=== PATIENT | male | born 1960 | race Caucasian/White ===

== ENCOUNTER 2021-10-25 23:00 | Emergency (ER) | payer MEDICARE, MEDICAID ==
[2021-10-25] MEDS ORDERED: AMIODARONE 150 MG/100 ML 100 ML IV ONE (23:24)
[2021-10-25] MEDS ORDERED: AMIODARONE 360 MG/200 ML 200 ML IV ONE ×2 (23:24)
--- NOTE | 2021-10-25 23:34 | ED Physician Documentation ---
History of Present Illness - Stated complaint Stated Complaint: CHEST/ARM PX - History obtained from History obtained from: Patient, Family (son) - Additonal information Additional information: 61-year-old man presented as an acute STEMI and cardiac arrest and V. fib. Further history limited by patient acuity. Review of Systems Unable to obtain: Other (Review of systems limited by patient acuity) PD PAST MEDICAL HISTORY - Present Medications Home Medications: Ambulatory Orders Medication Instructions Recorded Confirmed Home Medications Unobtainable 10/25/21 10/25/21 [HOME MEDICATIONS UNOBTAINABLE] - Allergies Allergies/Adverse Reactions: Allergies Allergy/AdvReac Type Severity Reaction Status Date / Time No Known Drug Allergies Allergy Verified 10/25/21 23:38 PD ED PE NORMAL - Vitals Vital signs reviewed: Yes - General General: Other (on initial eval, patient was pulseless, with agonal respirations. after ROSC, AOX4, uncomfortable appearing, clutching chest) - HEENT HEENT: Atraumatic, PERRL, EOMI, Moist mucous membranes, Pharynx benign - Neck Neck: Supple, no meningeal sign - Cardiac Cardiac: RRR (initially pulseless. RRR s/p ROSC) - Respiratory Respiratory: No respiratory distress, Clear bilaterally - Abdomen Abdomen: Non tender, Non distended - Derm Derm: Normal color, Warm and dry - Extremities Extremities: No deformity - Neuro Neuro: Alert and oriented X 3 (s/p ROSC) - Psych Psych: Other (initially agitated s/p ROSC, but redirectable) Results - Labs Labs: Laboratory Tests 10/25/21 22:40 WBC 17.1 H RBC 5.26 Hgb 16.3 Hct 49.2 MCV 93.5 MCH 31.0 MCHC 33.1 RDW 13.1 Plt Count 280 MPV 8.7 PD MEDICAL DECISION MAKING - ED course ED course: Son reports patient hit head / L shoulder/occiput at 1800 after slipping on ice outside [facility], no LOC. shortly after started c/o CP and was brought to ED. 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 pmh hip replacement, chronic back pain, ?copd. Benefits of heparin outweigh risk of head injury given patient has acute STEMI on EKG. code stemi called upon ROSC with EKG concerning for acute TN. d/w Dr. Costa, ED MD who is accepting at [facility]. life flight at bedside. Departure - Departure Disposition: 02 Transfer Acute Care Hosp Clinical Impression: STEMI (ST elevation myocardial infarction), Ventricular fibrillation, Cardiac arrest Condition: Stable
[2021-10-25] MEDS ORDERED: ASPIRIN 325 MG TABLET PO STA (23:36)
--- NOTE | 2021-10-25 23:44 | XRAY Report ---
PROCEDURE: Chest 1 View X-Ray INDICATIONS: Chest Pain TECHNIQUE: One view of the chest was acquired. COMPARISON: None. FINDINGS: SUPPORT DEVICES: Overlying monitor artifact. LUNGS/PLEURA: No focal consolidation, pleural effusion or space-occupying pneumothorax. MEDIASTINUM: The cardiomediastinal silhouette is within normal limits. BONES/SOFT TISSUES: No acute abnormality. IMPRESSION: 1.No acute cardiopulmonary abnormality. Reviewed by: Colby Luque MD on 10/25/2021 11:43 PM [facility] Approved by: Colby Luque MD on 10/25/2021 11:43 PM [facility] Station ID: [id number]
[2021-10-25] MEDS ORDERED: AMIODARONE 360 MG/200 ML 200 ML IV SCH (23:45)
[2021-10-25] MEDS ORDERED: HEPARIN 25000UNITS/500ML (D5W) 25,000 UNIT/500 ML BAG IV SCH (23:45)
[2021-10-25 23:49] LABS: BASOPHILS % (AUTO) 0.8 %; EOSINOPHILS % (AUTO) 2.1 %; HCT - HEMATOCRIT 49.2 % (42.0-52.0); HGB - HEMOGLOBIN 16.3 g/dL (14.0-18.0); LYMPHOCYTES % (AUTO) 40.5 %; MEAN CORPUSCULAR HGB CONC 33.1 g/dL (32.0-36.0); MEAN CORPUSCULAR VOLUME 93.5 fL (80.0-94.0); MEAN PLATELET VOLUME 8.7 fL (7.4-11.4); MONOCYTES % (AUTO) 4.7 %; NEUTROPHILS % (AUTO) 50.8 %; PLT - PLATELET COUNT 280 10^3/uL (130-450); RED BLOOD COUNT 5.26 10^6/uL (4.70-6.10); RED CELL DISTRIBUTION WIDTH 13.1 % (12.0-15.0); WHITE BLOOD COUNT 17.1 x10^3/uL (4.8-10.8)
[2021-10-26 00:08] LABS: ALBUMIN/GLOBULIN RATIO 1.3 (1.0-2.2); BILIRUBIN,TOTAL 0.5 mg/dL (0.2-1.0); CALCIUM 8.4 mg/dL (8.5-10.3); CREATININE 0.9 mg/dL (0.6-1.2); POTASSIUM 3.5 mmol/L (3.5-5.0); TOTAL PROTEIN 7.1 g/dL (6.7-8.2)
[2021-10-26 00:12] LABS: ABNORMAL LYMPHS % (MANUAL) 2 %; BAND NEUTROPHILS % (MANUAL) 1 %; BASOPHILS # (MANUAL) 0.3 10^3/uL (0-0.1); BASOPHILS % (MANUAL) 2 %; DIFFERENTIAL COMMENT MANUAL DIFFERENTIAL; EOSINOPHILS # (MANUAL) 0.9 10^3/uL (0-0.7); LYMPHOCYTES # (MANUAL) 7.5 10^3/uL (1.5-3.5); LYMPHOCYTES % (MANUAL) 42 %; NEUTROPHILS # (MANUAL) 7.4 10^3/uL (1.5-6.6); PLATELET ESTIMATE, MANUAL NORMAL (130-450,000) (NORMAL); PLATELET MORPHOLOGY NORMAL APPEARANCE (NORMAL); RBC MORPHOLOGY (MULTIPLE) NORMAL APPEARANCE (NORMAL); WBC MORPHOLOGY (MULTIPLE) NORMAL APPEARANCE (NORMAL)
[2021-10-26 00:27] VITALS: BP 112/83
[2021-10-26 00:33] LABS: B. PARAPERTUSSIS- RESP PCR PAN NOT DETECTED; B. PERTUSSIS- RESP PCR PANEL NOT DETECTED; C. PNEUMONIAE- RESP PCR PANEL NOT DETECTED; CORONAVIRUS 229E-RESP PCR NOT DETECTED; CORONAVIRUS HKU1-RESP PCR NOT DETECTED; CORONAVIRUS NL63-RESP PCR NOT DETECTED; CORONAVIRUS OC43-RESP PCR NOT DETECTED; HUMAN METAPNEUMOVIRUS NOT DETECTED; INFLUENZA A- RESP PCR PANEL NOT DETECTED; INFLUENZA B - RESP PCR PANEL NOT DETECTED; M. PNEUMONIAE- RESP PCR PANEL NOT DETECTED; PARAINFLUENZA VIRUS 1 NOT DETECTED; PARAINFLUENZA VIRUS 2 NOT DETECTED; PARAINFLUENZA VIRUS 3 NOT DETECTED; PARAINFLUENZA VIRUS 4 NOT DETECTED; RHINOVIRUS/ENTEROVIRUS NOT DETECTED; RSV- RESP PCR PANEL NOT DETECTED; SARS-CoV-2 -RESP PCR PANEL NOT DETECTED
== END 2021-10-26 00:05 | disposition short-term general hospital (02) ==
LOC: ED 23:00
DX: I46.9 Cardiac arrest, cause unspecified (principal); I21.3 ST elevation (STEMI) myocardial infarction of unspecified site; I49.01 Ventricular fibrillation; Z20.822 Contact with and (suspected) exposure to COVID-19
CPT/HCPCS: 36415; 71045; 80053; 83690; 84484; 85025; 87631; 92950; 93005; 99281; 99285; A9270; J0282; 0202U; 85520

== ENCOUNTER 2023-03-07 15:35 | Emergency (ER) | payer MEDICARE, MEDICAID ==
--- NOTE | 2023-03-07 16:03 | ED Physician Documentation ---
PD HPI CHEST PAIN - Stated complaint Stated Complaint: CHEST PX - Chief complaint Chief Complaint: Cardiac - History obtained from History obtained from: Patient - Additional information Additional information: 62-year-old gentleman with history of coronary disease, GA x1 a little over a year ago with 2 stents. This morning he developed very mild right lower nonradiating chest pain that was worse with movement but not with exertion per se. He is not specifically short of breath with it, he says he is always short of breath related to COPD and asbestosis, but not more so than usual. Denies pedal edema or calf pain. PD PAST MEDICAL HISTORY - Past Medical History Past Medical History: Yes Cardiovascular: GA Musculoskeletal: Chronic back pain - Past Surgical History Past Surgical History: Yes Ortho: Hip replacement - Present Medications Home Medications: Ambulatory Orders Medication Instructions Recorded Confirmed Home Medications Unobtainable 10/25/21 10/25/21 [HOME MEDICATIONS UNOBTAINABLE] - Allergies Allergies/Adverse Reactions: Allergies Allergy/AdvReac Type Severity Reaction Status Date / Time acetaminophen [From Tylenol] Allergy Unknown Verified 03/07/23 15:40 Penicillins Allergy Rash Verified 03/07/23 15:40 - Social History Does the pt smoke?: No Smoking Status: Former smoker Does the pt have substance abuse?: Yes Substance Use and Type: Marijuana ("All the time") PD ED PE NORMAL - Vitals Vital signs reviewed: Yes - General General: Alert and oriented X 3, No acute distress - Neck Neck: Supple, no meningeal sign, No bony TTP - Cardiac Cardiac: RRR, No murmur - Respiratory Respiratory: No respiratory distress, Clear bilaterally - Abdomen Abdomen: Soft, Non tender - Extremities Extremities: No edema, No calf tenderness / cord - Neuro Neuro: Alert and oriented X 3, Normal speech Results - Vitals Vitals: Vital Signs - 24 hr 03/07/23 03/07/23 15:40 16:17 Temperature 36.5 C Heart Rate 90 90 Respiratory 18 16 Rate Blood Pressure 148/71 H 128/90 H O2 Saturation 96 96 Oxygen O2 Source Room air - EKG (time done) 1544 EKG releavant findings:: EKG personally interpreted by author of this note. Relevant findings are: Rate: Rate (enter#) (98) Rhythm: NSR [place]: Normal Intervals: Normal NE QRS: Normal Ischemia: Normal ST segments - Labs Labs: Laboratory Tests 03/07/23 03/07/23 03/07/23 16:03 16:03 16:03 WBC 8.0 RBC 4.45 L Hgb 13.4 L Hct 40.4 L MCV 90.8 MCH 30.1 MCHC 33.2 RDW 14.2 Plt Count 202 MPV 8.9 Neut # (Auto) 4.9 Lymph # (Auto) 2.2 [place] # (Auto) 0.6 Eos # (Auto) 0.2 Baso # (Auto) 0.1 Absolute Nucleated RBC 0.00 Nucleated RBC % 0.0 Sodium 137 Potassium 4.2 Chloride 101 Carbon Dioxide 24 Anion Gap 12.0 BUN 6 Creatinine 0.8 Estimated GFR (MDRD) 98 Glucose 109 H Calcium 8.8 Total Bilirubin 0.7 AST 24 ALT 23 Alkaline Phosphatase 83 Troponin I High Sens 4.3 Total Protein 6.5 L Albumin 3.6 Globulin 2.9 Albumin/Globulin Ratio 1.2 Lipase 32 - Rads (name of study) Single view chest x-ray shows some left basilar atelectasis or scarring without acute disease. Relevant Findings:: Final report received, EMP independent interpretation of test PD Medical Decision Making - ED course ED course: 62-year-old gentleman presents with about 8 hours of pain. He said it is very difficult than his prior GA/anginal equivalent pain. Biomarkers and EKG are nonischemic. He is pain-free by the time of discharge. 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 CBC reviewed with mild anemia. CMP reviewed and normal. Troponin normal/negative. Departure - Departure Disposition: 01 Home, Self Care Clinical Impression: Chest pain Qualifiers: Chest pain type: unspecified Qualified Code(s): R07.9 - Chest pain, unspecified Condition: Good Record reviewed to determine appropriate education?: Yes Instructions: ED Chest Pain NonCardiac Comments: There is no indication that the current pain is related to your heart. That said you should follow-up with your deputy sheriff generalist/bailiff on return home and return if pain returns or you develop new or different pains. Continue current medications.
[2023-03-07 16:09] LABS: BASOPHILS # (AUTO) 0.1 10^3/uL (0.0-0.1); BASOPHILS % (AUTO) 0.7 %; EOSINOPHILS # (AUTO) 0.2 10^3/uL (0.0-0.7); EOSINOPHILS % (AUTO) 2.2 %; HCT - HEMATOCRIT 40.4 % (42.0-52.0); HGB - HEMOGLOBIN 13.4 g/dL (14.0-18.0); LYMPHOCYTES # (AUTO) 2.2 10^3/uL (1.5-3.5); LYMPHOCYTES % (AUTO) 27.1 %; MEAN CORPUSCULAR HEMOGLOBIN 30.1 pg (27.0-31.0); MEAN CORPUSCULAR HGB CONC 33.2 g/dL (32.0-36.0); MEAN CORPUSCULAR VOLUME 90.8 fL (80.0-94.0); MEAN PLATELET VOLUME 8.9 fL (7.4-11.4); MONOCYTES # (AUTO) 0.6 10^3/uL (0.0-1.0); MONOCYTES % (AUTO) 7.9 %; NEUTROPHILS # (AUTO) 4.9 10^3/uL (1.5-6.6); NEUTROPHILS % (AUTO) 61.4 %; PLT - PLATELET COUNT 202 10^3/uL (130-450); RED BLOOD COUNT 4.45 10^6/uL (4.70-6.10); RED CELL DISTRIBUTION WIDTH 14.2 % (12.0-15.0)
[2023-03-07 16:25] LABS: ALBUMIN 3.6 g/dL (3.2-5.5); ALBUMIN/GLOBULIN RATIO 1.2 (1.0-2.2); BILIRUBIN,TOTAL 0.7 mg/dL (0.2-1.0); CALCIUM 8.8 mg/dL (8.5-10.3); CREATININE 0.8 mg/dL (0.6-1.2); POTASSIUM 4.2 mmol/L (3.5-5.0); TOTAL PROTEIN 6.5 g/dL (6.7-8.2)
--- NOTE | 2023-03-07 16:26 | XRAY Report ---
PROCEDURE: Chest 1 View X-Ray INDICATIONS: Chest pain TECHNIQUE: One view of the chest was acquired. COMPARISON: 10/25/2021. FINDINGS: Surgical changes and devices: None. Lungs and pleura: No pleural effusions or pneumothorax. Linear scarring/atelectasis is noted in left lower lobe. Right lung is clear Mediastinum: Mediastinal contours appear normal. Heart size is normal. Bones and chest wall: No suspicious bony lesions. Overlying soft tissues appear unremarkable. IMPRESSION: Suggestion of left lower lobe scarring/atelectasis. No pleural effusion or pneumothorax. Right lung i s clear. Reviewed by: Erik Presley MD on 03/07/2023 4:24 PM PDT Approved by: Erik Presley MD on 03/07/2023 4:24 PM PDT Station ID: [id number]
[2023-03-07 16:42] VITALS: BP 134/70
== END 2023-03-07 16:45 | disposition home or self-care (01) ==
LOC: ED 15:35
DX: R07.9 Chest pain, unspecified (principal); I25.2 Old myocardial infarction; Z87.891 Personal history of nicotine dependence
CPT/HCPCS: 36415; 80053; 83690; 84484; 85025; 93005; 99283; 99284